=== PATIENT | male | born 1940 | race Native Hawaiian/Other Pacific Islander ===

== ENCOUNTER 2016-05-17 05:56 | Day surgery (SDC) | payer MEDICARE ==
[~2016-05-17] VITALS: Ht 172.7 cm; Wt 82.0 kg
[~2016-05-17 05:56] MED LIST: ALPR0.5T99 PO; ASPI81TA82 PO; ATOR20TA42 PO; CARV3.12 PO; CEPH500C3 PO; LORTA10 PO; SYNT112T PO
[2016-05-17] MEDS ORDERED: NS 1000P @30 MLS/HR (KVO) IV SCH ×2 (06:45→07:30)
[2016-05-17 06:54] LABS: BASOPHIL % 0.6 % (0.0-2.0); EOSINOPHIL # 0.1 TH/MM3 (0-0.4); EOSINOPHIL % 1.8 % (0.0-4.0); HEMATOCRIT 39.4 % (39.0-51.0); HEMO FLAGS DIFF FINAL; LYMPH % 29.4 % (9.0-44.0); MEAN CELL VOLUME 94.8 FL (80.0-100.0); MEAN CORPUSCULAR HEMOGLOBIN 32.1 PG (27.0-34.0); MEAN CORPUSCULAR HGB CONC 33.8 % (32.0-36.0); MONO % 10.1 % (0.0-8.0); NEUT % 58.1 % (16.0-70.0); PLATELET COUNT 135 TH/MM3 (150-450); RED BLOOD COUNT 4.15 MIL/MM3 (4.50-5.90); RED CELL DISTRIBUTION WIDTH 13.6 % (11.6-17.2); WHITE BLOOD COUNT 6.8 TH/MM3 (4.0-11.0)
[2016-05-17] MEDS ORDERED: DIAZEPAM 10 MG TAB ONE (06:54)
[2016-05-17 07:00] VITALS: BP 113/66; PULSE 58; RESP 18; TEMP 97.9; O2SAT 97
[2016-05-17 07:01] LABS: APTT (PATIENT) 31.1 SEC (24.3-30.1); PROTHROMBIN TIME - PATIENT 11.1 SEC (9.8-11.6)
[2016-05-17 07:14] LABS: BICARBONATE 28.3 MEQ/L (21.0-32.0); POTASSIUM 3.9 MEQ/L (3.5-5.1)
[2016-05-17] MEDS ORDERED: CARV3.12 PO (07:18)
[2016-05-17] MEDS ORDERED: CAPT12.52 PO (07:18)
[2016-05-17] MEDS ORDERED: NITR1SUB3 SL (07:18)
[2016-05-17] MEDS ORDERED: ISOS60TA PO (07:18)
[2016-05-17] MEDS ORDERED: ALPR0.5T3 PO (07:18)
[2016-05-17] MEDS ORDERED: DOXA4TAB3 PO (07:18)
[2016-05-17] MEDS ORDERED: ASPI81CH25 PO (07:18)
[2016-05-17] MEDS ORDERED: DIAZEPAM 5 MG TAB PO SCH (07:30)
[2016-05-17] MEDS ORDERED: HEPARIN-NS/PF INJ 500 ML ONE (07:31)
[2016-05-17] MEDS ORDERED: MIDAZOLAM HCL 2 MG/2 ML VIAL ONE (07:31)
[2016-05-17] MEDS ORDERED: SODIUM CHLOR 0.9% 1000 ML INJ 1,000 ML IV SCH (08:38)
[2016-05-17] MEDS ORDERED: ONDANSETRON HCL 4 MG/2 ML VIAL IV PRN (08:45)
[2016-05-17] MEDS ORDERED: MISC INFORMATION XX ONE (08:45)
[2016-05-17] MEDS ORDERED: SODIUM CHLORIDE 0.9% FLUSH 5 ML FLUSH IVF PRN (08:45)
[2016-05-17] MEDS ORDERED: SODIUM CHLORIDE 0.9% FLUSH 5 ML FLUSH IVF SCH (09:00)
[2016-05-17] MEDS ORDERED: IODIXANOL 320 MG/ML 100 ML VIAL (for Cath Lab) OTHER ONE (09:11)
--- NOTE | 2016-05-17 09:36 | MA ---
cc: TERE ARAGON M.D., WAGID F. M.D. DATE: 05/17/2016 PROCEDURE PERFORMED Left heart catheterization, left ventriculography, coronary angiography, bypass graft angiography. BRIEF HISTORY Iliana Roberto is a 75-year-old man who has had two previous open heart operations. At the last open heart operation the left internal mammary bypass graft was ligated. He had a Y-vein graft to the LAD and diagonal, and coming off the low of the graft was a vein graft to the right coronary artery. His inupiat circulation at that time was totally occluded. DESCRIPTION OF PROCEDURE The patient was brought to the cardiac laborer airport maintenance in a fasting state. The right groin was prepped and draped in sterile fashion. Using 1% lidocaine for local anesthesia a 6.5 Togolese sheath was inserted in the right femoral artery. Fluoroscopy was used to help localize sheath insertion because the femoral artery was calcified. There was some resistance with passing the initial pigtail catheter but subsequently no problems passing catheters. Left ventricular pressure was measured using an angled pigtail catheter followed by left ventriculography and then a pullback. Coronary angiography was completed using a left 4 Ganesh for the left coronary artery and a right 4 Ganesh for the right coronary artery. Angiography of the vein graft was performed using the right Ganesh. There was only one graft to visualize. Angiography was then obtained of the right iliac artery via the sheath. There was a very mild focal dissection but good flow and a large caliber vessel so no intervention was performed for that. The sheath was pulled manually and with no subsequent complications. The patient tolerated the procedure well. FINDINGS HEMODYNAMICS The left ventricular pressure is 90/0 with an end-diastolic pressure of 12. The aortic pressure is 99/47 with mean of 69. There is no gradient during pullback from the left ventricle to the aorta. LEFT VENTRICULOGRAPHY The left ventriculography shows severe global hypokinesis. The posterobasal segment is calcified and akinetic. Ejection fraction is only about 50%, no more than 20%. There is angiographic 2-3+ mitral regurgitation. CORONARY ANGIOGRAPHY The left main coronary artery is totally occluded proximally in a stump-like fashion. The right coronary artery is totally occluded proximally. There is a conus collateral to the involved vessel of the distal right coronary artery. BYPASS GRAFTS There is one Y-graft coming off the aorta. The graft is very large caliber with no stenoses. One limb of the Y-graft goes to the mid LAD and provides excellent antegrade flow to the LAD. It does not provide any retrograde flow in the LAD due to the fact that the mid LAD proximal to the graft is occluded. The other limb of the graft is a vein graft to the major diagonal branch. This fills all the way back to the left main, the major first septal buckle assembler branch, and probably a small ramus-type branch. There really was not any circumflex vessels visualized. There were also collaterals to the acute marginal branch of the right coronary artery from the LAD. CONCLUSIONS 1. Fairly low blood pressure. 2. Severely impaired LV function with moderate to severe mitral regurgitation. 3. Occlusion of all the inupiat circulation. 4. Widely patent Y-vein graft to the LAD and diagonal branch with collaterals to the right coronary artery, both antegrade and from the LAD. RECOMMENDATIONS Medical management. ADDENDUM There is a very small focal dissection in the right external iliac artery with good flow and no intervention performed with the idea that this will probably heal fine on its own. MD CHELSI Chavira/NIMO /8:35 AM /9:14 AM
--- NOTE | 2016-05-17 22:38 | EKG ---
Date Performed: 05/17/2016 Time Performed: 06:47:42 PTAGE: 75 years EKG: Sinus bradycardia with PVC(s) with 1st degree A-V block Possible inferior infarct - age und etermined Lateral ST-T changes may be due to myocardial ischemia Abnormal ECG PREVIOUS TRACING : 02/19/2013 04.31 DOCTOR: Orlin Kidd Interpretating Date/Time 05/17/2016 22:35:59
== END 2016-05-17 15:11 | disposition home or self-care (01) ==
LOC: HCAT 05:56 → HDIC 05:57 → HCAT 15:11
PROVIDERS: ATTEND Internal Medicine Cardiovascular Disease
DX: I25.810 Atherosclerosis of coronary artery bypass graft(s) without angina pectoris (principal); I25.5 Ischemic cardiomyopathy; I47.2 Ventricular tachycardia; I34.0 Nonrheumatic mitral (valve) insufficiency; I36.1 Nonrheumatic tricuspid (valve) insufficiency; E78.5 Hyperlipidemia, unspecified; Z95.810 Presence of automatic (implantable) cardiac defibrillator; Z79.01 Long term (current) use of anticoagulants
CPT/HCPCS: 80048; 85025; 85610; 85730; 93005; 93459; C1769; C1893; J1644; J2250; J7030; Q9967

== ENCOUNTER 2016-06-29 23:10 | Inpatient (IN) | payer MEDICARE ==
[~2016-06-29] VITALS: Ht 170.2 cm; Wt 67.2 kg
[~2016-06-29 23:10] MED LIST changes: +ALPR0.5T3 PO; -ALPR0.5T99 PO; +ASPI81CH25 PO; -ASPI81TA82 PO; -ATOR20TA42 PO; +CAPT12.52 PO; -CEPH500C3 PO; +DOXA4TAB3 PO; +ISOS60TA PO; -LORTA10 PO; +NITR1SUB3 SL; -SYNT112T PO
[2016-06-29 23:26] VITALS: BP 149/73; PULSE 75; RESP 18; TEMP 98.4; O2SAT 99
[2016-06-29] MEDS ORDERED: SODIUM CHLORIDE 0.9% FLUSH 5 ML FLUSH IVF PRN (23:45)
--- NOTE | 2016-06-29 23:59 | PD ---
HPI Chief Complaint: Chest Pain Time Seen by Provider: 23:33 Travel History International Travel<30 days: No Contact w/Intl Traveler<30days: No Traveled to known affect area: No History of Present Illness HPI 75-year-old male presents with central chest pain that is been present for the past couple of days. He states Dr. Schmitz is his quantitative associate. He states that about 5 weeks ago he had a heart catheterization done that showed damage to the left side of his heart that cannot be fixed. He states they advised him to continue his medication. He states that today he took aspirin and nitroglycerin but as he was still having the pain he elected to come in. He states now the pain is almost resolved. He denies other associated symptoms. Quality is tight. Severity is resolving. PFSH Past Medical History Heart Rhythm Problems: Yes Cardiovascular Problems: Yes (MA, CABG) High Cholesterol: Yes Chest Pain: Yes Congestive Heart Failure: Yes Endocrine: Yes Genitourinary: Yes Hypertension: Yes Respiratory: Yes Thyroid Disease: Yes (HYPOTHIROIDISM) Tetanus Vaccination: Unknown Influenza Vaccination: No Past Surgical History Cardiac Surgery: Yes (CABG *1 1984, PACEMAKER 2002) Eye Surgery: Yes (CATARACT [id number]) Other Surgery: Yes Social History Alcohol Use: No Tobacco Use: No Substance Use: No Allergies-Medications (Allergen,Severity, Reaction): Coded Allergies: No Known Allergies (Verified , 02/18/13) Reported Meds & Prescriptions Reported Meds & Active Scripts Active Reported Nitroglycerin SL (Nitroglycerin) 0.4 Mg Subl 0.4 Mg SL DIRECTED PRN ONE TABLET UNDER THE TONGUE NEEDED FOR CHEST PAIN, MAY REPEAT EVERY FIVE MINUTES FOR A TOTAL OF 3 DOSES OR CALL 911 IF NO RELIEF Doxazosin (Doxazosin Mesylate) 4 Mg Tab 4 Mg PO DAILY Carvedilol 3.125 Mg Tab 3.125 Mg PO DAILY Captopril 12.5 Mg Tab 6.25 Mg PO DIRECTED Take 1 hour before meals. Aspirin Low Strength (Aspirin) 81 Mg Chew 81 Mg PO DAILY Alprazolam 0.5 Mg Tab 0.5 Mg PO Q6H PRN Isosorbide Mononitrate ER (Isosorbide Mononitrate) 60 Mg Tab 60 Mg PO DAILY Review of Systems Except as stated in HPI: all other systems reviewed are Neg Physical Exam Narrative GENERAL: Well-nourished, well-developed patient. SKIN: Warm and dry. HEAD: Normocephalic and atraumatic. EYES: No injection or drainage. ENT: No nasal drainage noted. NECK: Supple, trachea midline. CARDIOVASCULAR: Regular rate and rhythm RESPIRATORY: Breath sounds equal bilaterally. No accessory muscle use. GASTROINTESTINAL: Abdomen soft, non-tender, nondistended. NEUROLOGICAL: Awake and alert. Motor and sensory grossly within normal limits. Normal speech. Data Data Last Documented VS Vital Signs Date Time Temp Pulse Resp B/P Pulse Ox O2 Delivery O2 Flow Rate FiO2 06/29/16 23:29 87 18 100 Nasal Cannula 2 06/29/16 23:26 98.4 149/73 Orders Electrocardiogram (06/29/16 23:33) Ckmb (Isoenzyme) Profile (06/29/16 23:33) Complete Blood Count With Diff (06/29/16 23:33) Comprehensive Metabolic Panel (06/29/16 23:33) Magnesium (Mg) (06/29/16 23:33) Prothrombin Time / Inr (Pt) (06/29/16 23:33) Act Partial Throm Time (Ptt) (06/29/16 23:33) Troponin I (06/29/16 23:33) Chest, Single Ap (06/29/16 23:33) Ecg Monitoring (06/29/16 23:33) Bilateral Bp Monitoring (06/29/16 23:33) Iv Access Insert/Monitor (06/29/16 23:33) Oximetry (06/29/16 23:33) Sodium Chloride 0.9% Flush (Ns Flush) (06/29/16 23:45) B-Type Natriuretic Peptide (06/29/16 23:47) Nitroglycerin 2% Oint (Nitroglycerin 2% (06/30/16 00:00) Consult Cardiology (06/30/16 ) Heparin Infusion LUIS.Q1H (06/30/16 01:16) Heparin Inj (Heparin Inj) (06/30/16 01:30) Heparin Inj (Heparin Inj) (06/30/16 07:30) Heparin Inj (Heparin Inj) (06/30/16 07:30) Heparin-D5w Inj (Heparin-D5w Inj) (06/30/16 01:30) Cbc No Diff, Includes Plts (07/03/16 06:00) Act Partial Throm Time (Ptt) (06/30/16 08:16) Occult Blood (Hemoccult) Stool (06/30/16 01:16) Admit Order (Ed Use Only) (06/30/16 01:27) Labs Laboratory Tests Test 06/30/16 00:08 White Blood Count 7.8 TH/MM3 Red Blood Count 4.38 MIL/MM3 Hemoglobin 14.3 GM/DL Hematocrit 41.6 % Mean Corpuscular Volume 95.1 FL Mean Corpuscular Hemoglobin 32.7 PG Mean Corpuscular Hemoglobin 34.4 % Concent Red Cell Distribution Width 13.3 % Platelet Count 129 TH/MM3 Mean Platelet Volume 10.8 FL Neutrophils (%) (Auto) 64.8 % Lymphocytes (%) (Auto) 22.0 % Monocytes (%) (Auto) 10.8 % Eosinophils (%) (Auto) 2.0 % Basophils (%) (Auto) 0.4 % Neutrophils # (Auto) 5.1 TH/MM3 Lymphocytes # (Auto) 1.7 TH/MM3 Monocytes # (Auto) 0.8 TH/MM3 Eosinophils # (Auto) 0.2 TH/MM3 Basophils # (Auto) 0.0 TH/MM3 CBC Comment DIFF FINAL Differential Comment Prothrombin Time 10.9 SEC Prothromb Time International 1.0 RATIO Ratio Activated Partial 31.3 SEC Thromboplast Time Sodium Level 142 MEQ/L Potassium Level 4.1 MEQ/L Chloride Level 104 MEQ/L Carbon Dioxide Level 25.6 MEQ/L Anion Gap 12 MEQ/L Blood Urea Nitrogen 19 MG/DL Creatinine 1.18 MG/DL Estimat Glomerular Filtration 60 ML/MIN Rate Random Glucose 97 MG/DL Calcium Level 8.7 MG/DL Magnesium Level 2.3 MG/DL Total Bilirubin 0.4 MG/DL Aspartate Amino Transf 19 U/L (AST/SGOT) Alanine Aminotransferase 23 U/L (ALT/SGPT) Alkaline Phosphatase 75 U/L Total Creatine Kinase 57 U/L Troponin I 0.33 NG/ML B-Type Natriuretic Peptide 201 PG/ML Total Protein 7.2 GM/DL Albumin 4.0 GM/DL [facility] Medical Decision Making Medical Screen Exam Complete: Yes Emergency Medical Condition: Yes Medical Record Reviewed: Yes (past history confirmed, cardiac catheter shows moderate to severe mitral regurgitation, EF of 20%, small focal right iliac artery dissection, occlusion of all [place] circulation with widely patent graft to LAD and diagonal with collaterals) Interpretation(s) EKG is sinus rhythm at 70 without STEMI criteria CBC & BMP Diagram 06/30/16 00:08 cxr scar left base Differential Diagnosis MA, gastritis, angina, musculoskeletal Narrative Course Will check workup and dose with nitroglycerin paste and reevaluate ed workup with elevated troponin, will discuss with his quantitative associate and admit Physician Communication Physician Communication dr Oliver states to place on heparin drip and admit Dr. Graf agrees to admission Diagnosis Primary Impression: Unstable angina Additional Impression: Elevated troponin Admitting Information Admitting Physician Requests: Admit Lacy Molina MD Jun 29, 2016 23:59
[2016-06-30] VITALS (18 sets, daily range): BP systolic 94–138; BP diastolic 49–82; PULSE 60–94; RESP 16–20; TEMP 98–98.2; O2SAT 96–100
[2016-06-30] MEDS ORDERED: NITROGLYCERIN 2% OINT 1 GM PACKET TOP ONE
--- NOTE | 2016-06-30 00:11 | RADRPT ---
EXAM DATE/TIME: 06/29/2016 23:43 [facility] COMPARISON: CHEST SINGLE AP, February 18, 2013, 16:40. INDICATIONS : Chest pain. MEDICAL HISTORY : Hypertension. Myocardial infarction. Congestive heart failure. SURGICAL HISTORY : CABG. Pacemaker. ENCOUNTER: Initial ACUITY: 1 day PAIN SCORE: 4/10 LOCATION: Bilateral chest FINDINGS: Pacemaker device is noted with control pack over the left chest. There is slight atelectasis or pleur al peripheral scarring in the left lung base. The right lung is clear. Cardiomediastinal contours are satisfactory. Sternotomy wires are present. CONCLUSION: Mild scarring or atelectasis in the left lung base Mayank Sorto MD on June 30, 2016 at 0:09 Board Certified Radiologist. This report was verified electronically.
[2016-06-30 00:31] LABS: AUTOMATED NEUTROPHIL # 5.1 TH/MM3 (1.8-7.7); BASOPHIL % 0.4 % (0.0-2.0); EOSINOPHIL # 0.2 TH/MM3 (0-0.4); HEMATOCRIT 41.6 % (39.0-51.0); HEMO FLAGS DIFF FINAL; LYMPHOCYTE # 1.7 TH/MM3 (1.0-4.8); MEAN CELL VOLUME 95.1 FL (80.0-100.0); MEAN CORPUSCULAR HEMOGLOBIN 32.7 PG (27.0-34.0); MEAN CORPUSCULAR HGB CONC 34.4 % (32.0-36.0); MONO % 10.8 % (0.0-8.0); NEUT % 64.8 % (16.0-70.0); PLATELET COUNT 129 TH/MM3 (150-450); RED BLOOD COUNT 4.38 MIL/MM3 (4.50-5.90); RED CELL DISTRIBUTION WIDTH 13.3 % (11.6-17.2); WHITE BLOOD COUNT 7.8 TH/MM3 (4.0-11.0)
[2016-06-30 00:40] LABS: APTT (PATIENT) 31.3 SEC (24.3-30.1); PROTHROMBIN TIME - PATIENT 10.9 SEC (9.8-11.6)
[2016-06-30 00:50] LABS: ANION GAP 12 MEQ/L (5-15); AST (GOT) 19 U/L (15-37); BICARBONATE 25.6 MEQ/L (21.0-32.0); BLOOD UREA NITROGEN 19 MG/DL (7-18); CHLORIDE 104 MEQ/L (98-107); GLOMERULAR FILTRATION RATE 60 ML/MIN (>89); MAGNESIUM 2.3 MG/DL (1.5-2.5); POTASSIUM 4.1 MEQ/L (3.5-5.1); SODIUM (NA) 142 MEQ/L (136-145)
[2016-06-30 00:55] LABS: ALKALINE PHOSPHATASE 75 U/L (45-117); ALT (GPT) 23 U/L (12-78); TOTAL BILIRUBIN ADULT 0.4 MG/DL (0.2-1.0)
[2016-06-30 00:57] LABS: CREATINE KINASE 57 U/L (39-308)
[2016-06-30] MEDS ORDERED: HEPARIN SODIUM - IV 10,000 UNITS/10 ML VIAL IV ONE (01:30)
[2016-06-30] MEDS ORDERED: NITROGLYCERIN 2% OINT 1 GM PACKET TOPICAL PRN (01:45)
[2016-06-30] MEDS ORDERED: MORPHINE SULFATE 4 MG/ML INJ IV PRN (01:45)
[2016-06-30] MEDS ORDERED: ONDANSETRON HCL 4 MG/2 ML VIAL IVP PRN (01:45)
[2016-06-30] MEDS ORDERED: ACETAMINOPHEN 325 MG TAB PO PRN (01:45)
[2016-06-30] MEDS ORDERED: BISACODYL 10 MG SUPP PR PRN (01:45)
[2016-06-30] MEDS ORDERED: SODIUM CHLORIDE 0.9% FLUSH 5 ML FLUSH FLUSH PRN (01:45)
[2016-06-30] MEDS: HEPARIN-D5W INJ 250 ML IV SCH (02:24)
[2016-06-30] MEDS ORDERED: NITROGLYCERIN-DEXTROSE INJ 250 ML IV SCH (02:45)
--- NOTE | 2016-06-30 03:57 | HHI.HP ---
HPI Service [facility] Primary Care Physician Bryan Agrawal MD Admission Diagnosis angina Diagnoses: (1) NSTEMI (non-ST elevated myocardial infarction) Diagnosis: Principal (2) CHF (congestive heart failure) Diagnosis: Principal (3) HTN (hypertension) Diagnosis: Principal Travel History International Travel<30 Days: No Contact w/Intl Traveler <30 Da: No Traveled to Known Affected Are: No History of Present Illness This is a 75-year-old male with a PMH of HTN, Hyperlipidemia, CHF (EF 15-20%, severe LV dysfunction) and CAD s/p CABG who was brought to the ER for complaints of chest pain starting earlier today. Took NTG x2 prior to arrival w / some improvement, however persistent complaints of chest pain. Follows w/ Dr. Schmitz as outpatient, recent Cardiac Cath 05/17/16 w/ patent grafts w/ recommendation for medical management. On arrival, BP 149/73, HR 75, O2 sat 100 on 2L NC, Afebrile. WBC normal. Platelets 129, previously 135 on 05/17/16. Trop 0.33, EKG w/ no acute ST changes. Episode of chest pain while in ER w/ good response to NTG. Dr. Oliver consulted by ER physician, recommended Heparin gtt and will eval in am. Review of Systems Except as stated in HPI: all other systems reviewed are Neg ROS: 14 point review of systems otherwise negative. Past Family Social History Past Medical History PMH: HTN, Hyperlipidemia, CHF (EF 15-20%, severe LV dysfunction) and CAD s/p CABG Past Surgical History PAST SURGICAL HISTORY: CABG, Pacemaker, Cataract Surgery Allergies: Coded Allergies: No Known Allergies (Verified , 02/18/13) Family History PAST FAMILY HISTORY: Reviewed. No h/o DM or CAD Social History PAST SOCIAL HISTORY: Negative for alcohol, tobacco or drugs. Physical Exam Vital Signs Vital Signs Date Time Temp Pulse Resp B/P Pulse Ox O2 Delivery O2 Flow Rate FiO2 06/30/16 03:27 77 16 123/82 100 Nasal Cannula 2 06/30/16 03:26 77 16 123/82 100 Nasal Cannula 06/30/16 03:14 94 16 138/65 100 Nasal Cannula 2 06/30/16 02:25 67 20 100 Room Air 2 06/30/16 02:25 67 20 121/60 100 Nasal Cannula 2 06/29/16 23:29 87 18 100 Nasal Cannula 2 06/29/16 23:26 98.4 75 18 149/73 99 Physical Exam PE: GENERAL: Very pleasant elderly white male in no acute distress. HEENT: PERRLA, EOMI. No scleral icterus or conjunctival pallor. No lid lag or facial droop. CARDIOVASCULAR: Regular rate and rhythm. No obvious murmurs to auscultation. No chest tenderness to palpation. RESPIRATORY: No obvious rhonchi or wheezing. Clear to auscultation. Breath sounds equal bilaterally. GASTROINTESTINAL: Abdomen soft, non-tender, nondistended. BS normal. MUSCULOSKELETAL: Extremities without clubbing, cyanosis, or edema. No obvious deformities. NEUROLOGICAL: Awake, alert and oriented x4. No focal neurologic deficits. Moving both upper and lower extremities spontaneously. Laboratory Laboratory Tests Test 06/30/16 00:08 White Blood Count 7.8 Red Blood Count 4.38 Hemoglobin 14.3 Hematocrit 41.6 Mean Corpuscular Volume 95.1 Mean Corpuscular Hemoglobin 32.7 Mean Corpuscular Hemoglobin 34.4 Concent Red Cell Distribution Width 13.3 Platelet Count 129 Mean Platelet Volume 10.8 Neutrophils (%) (Auto) 64.8 Lymphocytes (%) (Auto) 22.0 Monocytes (%) (Auto) 10.8 Eosinophils (%) (Auto) 2.0 Basophils (%) (Auto) 0.4 Neutrophils # (Auto) 5.1 Lymphocytes # (Auto) 1.7 Monocytes # (Auto) 0.8 Eosinophils # (Auto) 0.2 Basophils # (Auto) 0.0 CBC Comment DIFF FINAL Differential Comment Prothrombin Time 10.9 Prothromb Time International 1.0 Ratio Activated Partial 31.3 Thromboplast Time Sodium Level 142 Potassium Level 4.1 Chloride Level 104 Carbon Dioxide Level 25.6 Anion Gap 12 Blood Urea Nitrogen 19 Creatinine 1.18 Estimat Glomerular Filtration 60 Rate Random Glucose 97 Calcium Level 8.7 Magnesium Level 2.3 Total Bilirubin 0.4 Aspartate Amino Transf 19 (AST/SGOT) Alanine Aminotransferase 23 (ALT/SGPT) Alkaline Phosphatase 75 Total Creatine Kinase 57 Troponin I 0.33 B-Type Natriuretic Peptide 201 Total Protein 7.2 Albumin 4.0 Result Diagram: 06/30/16706/30/167 Assessment and Plan Problem List: (1) NSTEMI (non-ST elevated myocardial infarction) ICD Code: I21.4 Status: Acute (2) CHF (congestive heart failure) ICD Code: I50.9 Status: Acute (3) HTN (hypertension) ICD Code: I10 Status: Acute Assessment and Plan A/P: 1. NSTEMI: h/o CAD s/p CABG, recent Cardiac Cath 05/17/[address] Schmitz w/ EF 15%, patent grafts w/ recommendation for medical management. Trop 0.33, EKG w/ no acute ST changes. Chest pain w/ significant improvement after NTG. Dr. Oliver consulted by ER physician, recommended Heparin gtt. Persistent c/o chest pain while in ER, start Nitro gtt, currently improved. NPO for possible cardiac intervention. Telemetry, check serial cardiac enzymes. 2. CHF: Chronic. Systolic. Cardiac Cath 05/17/16 w/ EF 15-20%, severe LV dysfunction. 3. HTN: Controlled. BP 120-130's systolic. Resume home medications, monitor BP. 4. DVT Prophylaxis: Heparin gtt 5. Social work for d/c planning as needed. 6. Case discussed w/ ER physician at length. Physician Certification 2 Midnight Certification Type: Admission for Inpatient Services Order for Inpatient Services The services are ordered in accordance with Medicare regulations or non- Medicare payer requirements, as applicable. In the case of services not specified as inpatient-only, they are appropriately provided as inpatient services in accordance with the 2-midnight benchmark. Estimated LOS (days): 2 days is the estimated time the patient will need to remain in the hospital, assuming treatment plan goals are met and no additional complications. Post-Hospital Plan: Not yet determined Jami Graf MD Jun 30, 2016 03:57
[2016-06-30 04:21] LABS: CREATINE KINASE 102 U/L (39-308)
[2016-06-30 04:35] LABS: CKMB 5.8 NG/ML (0.5-3.6)
[2016-06-30] MEDS: SODIUM CHLORIDE 0.9% FLUSH 5 ML FLUSH FLUSH SCH ×2 (07:30→20:04)
[2016-06-30] MEDS ORDERED: HEPARIN SODIUM - IV 10,000 UNITS/10 ML VIAL IV PRN ×2 (07:30)
[2016-06-30] MEDS ORDERED: CARVEDILOL 3.125 MG TAB PO SCH (09:00)
[2016-06-30] MEDS: ASPIRIN 81 MG CHEW TAB PO SCH (09:00)
[2016-06-30] MEDS: ALPRAZolam 0.5 MG TAB PO PRN ×2 (10:01→20:04)
[2016-06-30 10:31] LABS: APTT (PATIENT) 90.6 SEC (24.3-30.1)
[2016-06-30] MEDS ORDERED: FUROSEMIDE 20 MG TAB PO ONE (13:00)
[2016-06-30 13:07] LABS: APTT (PATIENT) 76.5 SEC (24.3-30.1)
--- NOTE | 2016-06-30 14:30 | MB ---
cc: SAMUEL QUEEN M.D. DATE OF CONSULTATION: 06/30/2016. REASON FOR CONSULTATION / CHIEF COMPLAINT: Chest pain. HISTORY OF PRESENT ILLNESS: The patient is an exceptionally pleasant 75-year-old white male who is been followed for many years by my partner, Dr. Donta Schmitz. Because of increasing angina, he underwent cardiac catheterization 05/17/2016. He is known to be status post two prior bypass procedures. He is known to have an advanced ischemic cardiomyopathy with a [employer] ICD in place. His cardiac catheterization on 05/17/2016 showed total occlusion of all little traverse circulation with a 100% left main coronary lesion and a 100% proximal right lesion. His only bypass graft was a Y graft to the LAD and first diagonal and it supplied only the distal two-thirds of the LAD as there was a proximal 100% LAD occlusion just beyond the vein graft insertion. The right coronary artery and circumflex coronary artery were collateralized. Ejection fraction was 20%. The patient had 2 to 3+ mitral insufficiency. Cardiac catheterization was complicated by a small area of right femoral artery dissection which has never been a clinical issue and he has had no complaints consistent with any related complication. His last office visit was on 06/04/2016 and at that time he was felt to be only a candidate for medical management. He has a history of moderate bilateral carotid disease and a moderate renal artery atherosclerosis. There is a history of hyperlipidemia. He has been very weak and washed out but otherwise free of cardiovascular complaints. He denies any shortness of breath or congestive failure type symptoms. He has just had primarily exercise intolerance. Because of headaches, he has had to reduce his isosorbide mononitrate to 1/2 tablet daily. He has otherwise been free of cardiovascular complaints, but extremely sedentary. He was well until yesterday evening. He was sitting watching TV when he had the onset of his typical angina pectoris. This was discomfort in the left arm radiating to the mid sternum and throat. It was relieved by sublingual nitroglycerin but then would recur every 10 minutes. After the third episode, his convinced him to come to the emergency room. In the emergency room, he had relatively severe chest discomfort and he has subsequently been found to have a non ST-segment elevation NV. Since being placed on heparin and intravenous nitrates his discomfort has resolved. The nitrates, however, had to be discontinued because of his blood pressure in the 95 systolic range. At the time I see him, he is comfortable supine in bed and completely asymptomatic. PHYSICAL EXAMINATION: GENERAL: On general inspection, he is an alert very pleasant gentleman lying in bed in no distress. VITAL SIGNS: His vital signs reveal a blood pressure of 94/60, pulse of 70, respirations of 16. Patient is afebrile. Saturation is 97% on 2 liters of oxygen. HEAD, EYES, EARS, NOSE, THROAT AND NECK: Unremarkable for the patient's age. LUNGS: Clear. CARDIOVASCULAR: Regular rate and rhythm. 2/6 systolic murmur consistent with his history of mitral insufficiency. S1-S2 are unremarkable. No gallops appreciated. ABDOMEN: Soft without masses, tenderness, organomegaly. Bowel sounds within normal limits. GENITALIA/RECTAL: Deferred. EXTREMITIES: No cyanosis, clubbing or edema. NEUROLOGIC: Grossly intact without focal findings. LABORATORY DATA: CBC is normal. Clotting studies were initially normal but on the heparin drip the aPTT is 90.6. SMA-12 is normal. The patient has had a troponin rise from 0.331 on his initial study to 1.85, CK-MB is also minimally elevated. EKG initially shows a first-degree AV block with lateral T-wave changes unchanged from April of 2016 and a subsequent EKG shows bigeminy with worsening lateral ST-segment change. Chest x-ray is unremarkable except for showing the ICD. ASSESSMENT AND PLAN: This is a very unfortunate situation. Pretty clearly with a 15-20% ejection fraction and multiple prior open heart procedures, he is really not much of a candidate for repeat surgical intervention. There is unfortunately no little traverse vascular access or any access for that matter to provide percutaneous revascularization. This leaves consideration of medical therapy and possibly ECP. His discomfort is nitrate-responsive so it is likely related to wall tension even though he does not have significant symptoms of congestive failure. I am going to increase his topical nitrates and increase his beta lawrence slightly. I am going to add some very minimal diuresis in an effort to further reduce filling pressure and wall tension. Unfortunately we just do not have anything to offer this gentleman, but again if he stabilizes, ECP can be considered. His regular cell stripper final, Dr. Schmitz, will be available in the morning. He is, at present, stable on his medical regimen. Subsequent therapy to be determined. MD MALCOLM Bautista/ANGELITA /12:48 PM /2:17 PM
--- NOTE | 2016-06-30 14:40 | EKG ---
Date Performed: 06/29/2016 Time Performed: 23:30:47 PTAGE: 75 years EKG: Sinus rhythm WITH FIRST DEGREE AV BLOCK ST DEVIATION AND MODERATE T-WAVE ABNORMALITY, CONSIDER LATERAL ISCHEMIA A BNORMAL ECG Compared to prior tracing no significant change PREVIOUS TRACING : 05/17/2016 06.47 DOCTOR: Noe Fields Interpretating Date/Time 06/30/2016 14:38:35
--- NOTE | 2016-06-30 14:41 | EKG ---
Date Performed: 06/30/2016 Time Performed: 02:36:28 PTAGE: 75 years EKG: Sinus rhythm WITH FIRST DEGREE AV BLOCK WITH FREQUENT VENTRICULAR PREMATURE COMPLEXES IN A BIGEMINAL PATTERN ST D EVIATION AND MODERATE T-WAVE ABNORMALITY, CONSIDER LATERAL ISCHEMIA ST DEVIATION AND MODERATE T-WAVE ABNORMALITY, CONSIDER INFERIOR ISCHEMIA ABNORMAL ECG Compared to prior tracing no significant change PREVIOUS TRACING : 06/29/2016 23.30 DOCTOR: Noe Fields Interpretating Date/Time 06/30/2016 14:38:45
--- NOTE | 2016-06-30 15:09 | HHI.PR ---
Addendum To [facility] Progress Not Reason for addendum: Additonal documentation (The pt was resting comfortably, chest pain free. He says he never has shortness of breath. He was seen by cardiology. No acute intervention planned. Continue heparin gtt, nitro and Lasix along with cardiac regimen. Follow up with cardiology in AM. Continue to monitor trops.) Roc Gilman DO Jun 30, 2016 15:09
[2016-06-30] MEDS: NITROGLYCERIN 2% OINT 1 GM PACKET TOPICAL SCH (18:00)
[2016-06-30 20:04] LABS: APTT (PATIENT) 44.6 SEC (24.3-30.1)
[2016-06-30] MEDS: CARVEDILOL 3.125 MG TAB PO SCH (20:04)
[2016-07-01] VITALS (28 sets, daily range): BP systolic 106–123; BP diastolic 52–71; PULSE 51–92; RESP 16–20; TEMP 97.3–98.4; O2SAT 96–100
[2016-07-01] MEDS: ACETAMINOPHEN/HYDROcodone 325 MG/5 MG TAB PO PRN ×3 (00:16→21:01)
[2016-07-01] MEDS: NITROGLYCERIN 2% OINT 1 GM PACKET TOPICAL SCH ×5 (00:16→23:15)
[2016-07-01] MEDS: ALPRAZolam 0.5 MG TAB PO PRN ×2 (04:04→23:15)
[2016-07-01 04:28] LABS: AUTOMATED NEUTROPHIL # 2.3 TH/MM3 (1.8-7.7); BASOPHIL % 0.6 % (0.0-2.0); EOSINOPHIL # 0.2 TH/MM3 (0-0.4); EOSINOPHIL % 3.2 % (0.0-4.0); HEMATOCRIT 37.7 % (39.0-51.0); HEMO FLAGS DIFF FINAL; LYMPH % 45.4 % (9.0-44.0); LYMPHOCYTE # 2.6 TH/MM3 (1.0-4.8); MEAN CELL VOLUME 94.7 FL (80.0-100.0); MEAN CORPUSCULAR HEMOGLOBIN 32.5 PG (27.0-34.0); MEAN CORPUSCULAR HGB CONC 34.3 % (32.0-36.0); MONO % 11.1 % (0.0-8.0); NEUT % 39.7 % (16.0-70.0); PLATELET COUNT 104 TH/MM3 (150-450); RED BLOOD COUNT 3.98 MIL/MM3 (4.50-5.90); RED CELL DISTRIBUTION WIDTH 13.4 % (11.6-17.2); WHITE BLOOD COUNT 5.7 TH/MM3 (4.0-11.0)
[2016-07-01 04:34] LABS: APTT (PATIENT) 46.9 SEC (24.3-30.1)
[2016-07-01 05:03] LABS: ALKALINE PHOSPHATASE 64 U/L (45-117); ALT (GPT) 22 U/L (12-78); ANION GAP 8 MEQ/L (5-15); AST (GOT) 21 U/L (15-37); BICARBONATE 27.3 MEQ/L (21.0-32.0); BLOOD UREA NITROGEN 18 MG/DL (7-18); CHLORIDE 107 MEQ/L (98-107); GLOMERULAR FILTRATION RATE 59 ML/MIN (>89); POTASSIUM 4.1 MEQ/L (3.5-5.1); SODIUM (NA) 142 MEQ/L (136-145); TOTAL BILIRUBIN ADULT 0.6 MG/DL (0.2-1.0)
[2016-07-01] MEDS: FUROSEMIDE 20 MG TAB PO SCH (08:35)
[2016-07-01] MEDS: SODIUM CHLORIDE 0.9% FLUSH 5 ML FLUSH FLUSH SCH ×2 (08:35→21:02)
[2016-07-01] MEDS: CARVEDILOL 3.125 MG TAB PO SCH (08:35)
[2016-07-01] MEDS: ASPIRIN 81 MG CHEW TAB PO SCH (08:35)
--- NOTE | 2016-07-01 09:13 | PD.CARD.PN ---
Subjective Subjective Remarks no further chest pain since yesterday Objective Medications Current Medications Medications (Trade) Dose Ordered Sig/Raphael Route Start Time Stop Time Status Last Admin (Heparin Inj) 5,000 units UNSCH PRN IV 06/30/16 07:30 Heparin Sodium (Porcine) 2500 units 2,500 units UNSCH PRN IV 06/30/16 07:30 (Heparin-D5W Inj) 250 ml @ 0 mls/hr TITRATE IV 06/30/16 01:30 06/30/16 02:24 (NS Flush) 2 ml UNSCH PRN FLUSH 06/30/16 01:45 (NS Flush) 2 ml BID FLUSH 06/30/16 09:00 07/01/16 08:35 (Zofran Inj) 4 mg Q6H PRN IVP 06/30/16 01:45 (Dulcolax Supp) 10 mg DAILY PRN [place] 06/30/16 01:45 (Tylenol) 650 mg Q6H PRN PO 06/30/16 01:45 ([place] 5-325 Mg) 1 tab Q4H PRN PO 06/30/16 01:45 07/01/16 04:06 Morphine Sulfate 2 mg 2 mg Q3H PRN IV 06/30/16 01:45 06/30/16 02:38 (Nitroglycerin-Dextrose Inj) 250 ml @ 0 mls/hr TITRATE IV 06/30/16 02:45 06/30/16 03:13 (Xanax) 0.5 mg Q6H PRN PO 06/30/16 08:30 07/01/16 04:04 (Aspirin Chew) 81 mg DAILY PO 06/30/16 09:00 07/01/16 08:35 (Coreg) 3.125 mg BID PO 06/30/16 21:00 07/01/16 08:35 (Nitroglycerin 2% Oint) 0.5 inch Q6HR TOPICAL 06/30/16 18:00 07/01/16 04:07 (Lasix) 20 mg DAILY PO 07/01/16 09:00 07/01/16 08:35 (Flu (Quadrivalent) Vaccine Inj) 0.5 ml ONCE ONCE IM 07/01/16 10:00 07/01/16 10:01 Vital Signs / I&O Vital Signs Date Time Temp Pulse Resp B/P Pulse Ox O2 Delivery O2 Flow Rate FiO2 07/01/16 08:04 65 07/01/16 07:46 100 Room Air 07/01/16 07:46 97.3 62 18 123/62 100 07/01/16 07:03 57 07/01/16 06:00 55 07/01/16 05:00 58 07/01/16 04:00 Room Air 07/01/16 04:00 98.4 65 18 106/62 99 07/01/16 04:00 65 07/01/16 03:00 52 07/01/16 02:00 51 07/01/16 01:00 61 07/01/16 00:00 58 07/01/16 00:00 Room Air 07/01/16 00:00 98.2 58 18 113/52 97 06/30/16 23:00 61 06/30/16 22:00 60 06/30/16 21:00 63 06/30/16 20:00 61 06/30/16 20:00 98.0 61 20 108/54 97 06/30/16 15:00 98.2 69 18 99/52 97 06/30/16 12:00 98.0 60 18 94/49 98 06/30/16 09:30 98.1 90 18 126/76 96 I/O 06/30/16 06/30/16 06/30/16 07/01/16 07/01/16 07/01/16 07:00 15:00 23:00 07:00 15:00 23:00 Intake Total 310 ml Output Total 800 ml Balance -490 ml Intake Oral 240 ml IV Total 70 ml Output Urine Total 800 ml # Bowel Movements 0 Physical Exam GENERAL: Well developed, well nourished. No acute distress. HEENT: Jugular venous pressure is normal. CHEST: Lungs clear to auscultation bilaterally. Unlabored respiratory effort. CARDIAC: Regular rate and rhythm. ABDOMEN: Soft, nontender, no hepatosplenomegaly. Bowel sounds present. EXTREMITIES: No clubbing, cyanosis, or edema. Laboratory Laboratory Tests Test 06/30/16 06/30/16 06/30/16 07/01/16 09:30 12:20 19:33 03:59 Activated Partial 90.6 SEC 76.5 SEC 44.6 SEC 46.9 SEC Thromboplast Time White Blood Count 5.7 TH/MM3 Red Blood Count 3.98 MIL/MM3 Hemoglobin 12.9 GM/DL Hematocrit 37.7 % Mean Corpuscular Volume 94.7 FL Mean Corpuscular Hemoglobin 32.5 PG Mean Corpuscular Hemoglobin 34.3 % Concent Red Cell Distribution Width 13.4 % Platelet Count 104 TH/MM3 Mean Platelet Volume 9.9 FL Neutrophils (%) (Auto) 39.7 % Lymphocytes (%) (Auto) 45.4 % Monocytes (%) (Auto) 11.1 % Eosinophils (%) (Auto) 3.2 % Basophils (%) (Auto) 0.6 % Neutrophils # (Auto) 2.3 TH/MM3 Lymphocytes # (Auto) 2.6 TH/MM3 Monocytes # (Auto) 0.6 TH/MM3 Eosinophils # (Auto) 0.2 TH/MM3 Basophils # (Auto) 0.0 TH/MM3 CBC Comment DIFF FINAL Differential Comment Sodium Level 142 MEQ/L Potassium Level 4.1 MEQ/L Chloride Level 107 MEQ/L Carbon Dioxide Level 27.3 MEQ/L Anion Gap 8 MEQ/L Blood Urea Nitrogen 18 MG/DL Creatinine 1.19 MG/DL Estimat Glomerular Filtration 59 ML/MIN Rate Random Glucose 80 MG/DL Calcium Level 8.1 MG/DL Total Bilirubin 0.6 MG/DL Aspartate Amino Transf 21 U/L (AST/SGOT) Alanine Aminotransferase 22 U/L (ALT/SGPT) Alkaline Phosphatase 64 U/L Troponin I 1.31 NG/ML B-Type Natriuretic Peptide 450 PG/ML Total Protein 5.9 GM/DL Albumin 3.1 GM/DL Assessment and Plan Problem List: (1) Ischemic cardiomyopathy Assessment and Plan: restart Entresto (2) NSTEMI (non-ST elevated myocardial infarction) Assessment and Plan: add Brilinta. Stop heparin later today. Change carvedilol to metoprolol. Add Ranexa. Plan EECP after discharge. 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 Meds optimized. Possible discharge tomorrow. Prognosis guarded. Discussed Condition With patient Donta Schmitz MD Jul 01, 2016 09:13
[2016-07-01] MEDS ORDERED: TICAGRELOR 90 MG TAB PO ONE (09:15)
[2016-07-01] MEDS ORDERED: INFLUENZA VIRUS VACCINE (QUADRIVALENT) 0.5 ML SYR IM ONE (10:00)
[2016-07-01] MEDS: HEPARIN-D5W INJ 250 ML IV SCH (10:18)
[2016-07-01] MEDS: SACUBITRIL/VALSARTAN 24 MG-26 MG TAB PO SCH ×2 (13:42→21:00)
[2016-07-01] MEDS: RANOLAZINE 500 MG EXTENDED RELEASE TAB PO SCH ×2 (13:42→21:01)
--- NOTE | 2016-07-01 14:03 | HHI.PR ---
Subjective Remarks The patient endorses some shortness of breath earlier as well as lightheadedness. He was feeling better now. 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 He is not having any chest pain. Discussed with nursing. Objective Vitals Vital Signs Date Time Temp Pulse Resp B/P Pulse Ox O2 Delivery O2 Flow Rate FiO2 07/01/16 13:16 92 07/01/16 12:01 66 07/01/16 11:47 61 07/01/16 11:47 97.8 60 18 108/71 98 07/01/16 10:43 64 07/01/16 09:48 59 07/01/16 08:04 65 07/01/16 07:46 100 Room Air 07/01/16 07:46 97.3 62 18 123/62 100 07/01/16 07:03 57 07/01/16 06:00 55 07/01/16 05:00 58 07/01/16 04:00 Room Air 07/01/16 04:00 98.4 65 18 106/62 99 07/01/16 04:00 65 07/01/16 03:00 52 07/01/16 02:00 51 07/01/16 01:00 61 07/01/16 00:00 58 07/01/16 00:00 Room Air 07/01/16 00:00 98.2 58 18 113/52 97 06/30/16 23:00 61 06/30/16 22:00 60 06/30/16 21:00 63 06/30/16 20:00 61 06/30/16 20:00 98.0 61 20 108/54 97 06/30/16 15:00 98.2 69 18 99/52 97 I/O 06/30/16 06/30/16 06/30/16 07/01/16 07/01/16 07/01/16 07:00 15:00 23:00 07:00 15:00 23:00 Intake Total 310 ml Output Total 800 ml Balance -490 ml Intake Oral 240 ml IV Total 70 ml Output Urine Total 800 ml # Bowel Movements 0 Result Diagram: 07/01/16 0359 07/01/16 0359 Imaging Last Impressions Chest X-Ray 06/29/16 3159 Signed Impressions: Service Date/Time: Wednesday, June 29, 2016 23:43 - CONCLUSION: Mild scarring or atelectasis in the left lung base Mayank Sorto MD Objective Remarks GENERAL: Elderly male in no acute distress. HEENT: PERRLA, EOMI. No scleral icterus or conjunctival pallor. No lid lag or facial droop. CARDIOVASCULAR: Regular rate and rhythm. No obvious murmurs to auscultation. No chest tenderness to palpation. RESPIRATORY: Mild wheezing. Clear to auscultation. Breath sounds equal bilaterally. GASTROINTESTINAL: Abdomen soft, non-tender, nondistended. BS normal. MUSCULOSKELETAL: Extremities without clubbing, cyanosis, or edema. No obvious deformities. NEUROLOGICAL: Awake, alert and oriented x4. No focal neurologic deficits. Moving both upper and lower extremities spontaneously. PSYCH: Slightly anxious. Medications and IVs Current Medications Medications (Trade) Dose Ordered Sig/Raphael Route Start Time Stop Time Status Last Admin (Heparin Inj) 5,000 units UNSCH PRN IV 06/30/16 07:30 07/01/16 15:00 Heparin Sodium (Porcine) 2500 units 2,500 units UNSCH PRN IV 06/30/16 07:30 07/01/16 15:00 (Heparin-D5W Inj) 250 ml @ 0 mls/hr TITRATE IV 06/30/16 01:30 07/01/16 15:00 07/01/16 10:18 (NS Flush) 2 ml UNSCH PRN FLUSH 06/30/16 01:45 (NS Flush) 2 ml BID FLUSH 06/30/16 09:00 07/01/16 08:35 (Zofran Inj) 4 mg Q6H PRN IVP 06/30/16 01:45 (Dulcolax Supp) 10 mg DAILY PRN [place] 06/30/16 01:45 (Tylenol) 650 mg Q6H PRN PO 06/30/16 01:45 ([place] 5-325 Mg) 1 tab Q4H PRN PO 06/30/16 01:45 07/01/16 04:06 Morphine Sulfate 2 mg 2 mg Q3H PRN IV 06/30/16 01:45 06/30/16 02:38 (Nitroglycerin-Dextrose Inj) 250 ml @ 0 mls/hr TITRATE IV 06/30/16 02:45 06/30/16 03:13 (Xanax) 0.5 mg Q6H PRN PO 06/30/16 08:30 07/01/16 04:04 (Aspirin Chew) 81 mg DAILY PO 06/30/16 09:00 07/01/16 08:35 (Nitroglycerin 2% Oint) 0.5 inch Q6HR TOPICAL 06/30/16 18:00 07/01/16 13:43 (Lasix) 20 mg DAILY PO 07/01/16 09:00 07/01/16 08:35 (Entresto 24-26 Mg) 1 tab BID PO 07/01/16 10:00 07/01/16 13:42 (Ranexa) 500 mg Q12HR PO 07/01/16 10:00 07/01/16 13:42 (Brilinta) 90 mg BID PO 07/01/16 21:00 (Lopressor) 25 mg Q12HR PO 07/01/16 21:00 A/P Problem List: (1) NSTEMI (non-ST elevated myocardial infarction) ICD Code: I21.4 Status: Acute (2) CHF (congestive heart failure) ICD Code: I50.9 Status: Acute (3) HTN (hypertension) ICD Code: I10 Status: Acute Assessment and Plan NSTEMI H/o CAD s/p CABG, recent Cardiac Cath 05/17/[address] Schmitz w/ EF 15%, patent grafts w/ recommendation for medical management. Trop 1.85, EKG w/ no acute ST changes. Chest pain w/ significant improvement after NTG. Heparin gtt was started. - continue cardiac regimen. Brilinta added, carvedilol was changed to metoprolol and Ranexa was added. Cardiology planning on CP after discharge. - Telemetry. CHF Chronic. Systolic. Cardiac Cath 05/17/16 w/ EF 15-20%, severe LV dysfunction. The pt endorsed shortness of breath 07/01. - continue Lasix. - restart Entresto. - repeat CXR 07/01. HTN Controlled. - Resume home medications. DVT Prophylaxis: Heparin gtt Discharge Planning D/c when cleared by cardiology. Possibly in the AM. Roc Gilman DO Jul 01, 2016 14:03
--- NOTE | 2016-07-01 15:02 | RADRPT ---
EXAM DATE/TIME: 07/01/2016 14:15 [place] COMPARISON: CHEST SINGLE AP, June 29, 2016, 23:43. INDICATIONS : Short of breath MEDICAL HISTORY : Myocardial infarction. Congestive heart failure. Hypertension. SURGICAL HISTORY : CABG. pacemaker/difibrillator ENCOUNTER: Subsequent ACUITY: 3 days PAIN SCORE: 0/10 LOCATION: Bilateral chest FINDINGS: The cardiac silhouette is normal in transverse diameter. Median sternotomy wires are present. A defib rillator device is in place via a left sided approach. The lungs are free of acute parenchymal opacit y. No effusions are identified. There is parenchymal scarring on the left. CONCLUSION: 1. Cardiomegaly. No acute pulmonary disease. Cuco Ruiz MD on July 01, 2016 at 14:58 Board Certified Radiologist. This report was verified electronically.
[2016-07-01] MEDS: METOPROLOL TARTRATE 25 MG TAB PO SCH (21:00)
[2016-07-01] MEDS: TICAGRELOR 90 MG TAB PO SCH (21:01)
[2016-07-02] VITALS (11 sets, daily range): BP systolic 89–113; BP diastolic 54–60; PULSE 49–81; RESP 17–20; TEMP 97.4–97.9; O2SAT 97–98
[2016-07-02] MEDS: NITROGLYCERIN 2% OINT 1 GM PACKET TOPICAL SCH (06:05)
[2016-07-02] MEDS: METOPROLOL TARTRATE 25 MG TAB PO SCH (09:00)
--- NOTE | 2016-07-02 09:09 | PD.CARD.PN ---
Subjective Subjective Remarks No angina Objective Medications Current Medications Medications (Trade) Dose Ordered Sig/Raphael Route Start Time Stop Time Status Last Admin (NS Flush) 2 ml UNSCH PRN FLUSH 06/30/16 01:45 (NS Flush) 2 ml BID FLUSH 06/30/16 09:00 07/01/16 21:02 (Zofran Inj) 4 mg Q6H PRN IVP 06/30/16 01:45 (Dulcolax Supp) 10 mg DAILY PRN [place] 06/30/16 01:45 (Tylenol) 650 mg Q6H PRN PO 06/30/16 01:45 ([place] 5-325 Mg) 1 tab Q4H PRN PO 06/30/16 01:45 07/01/16 21:01 Morphine Sulfate 2 mg 2 mg Q3H PRN IV 06/30/16 01:45 06/30/16 02:38 (Nitroglycerin-Dextrose Inj) 250 ml @ 0 mls/hr TITRATE IV 06/30/16 02:45 06/30/16 03:13 (Xanax) 0.5 mg Q6H PRN PO 06/30/16 08:30 07/01/16 23:15 (Aspirin Chew) 81 mg DAILY PO 06/30/16 09:00 07/01/16 08:35 (Nitroglycerin 2% Oint) 0.5 inch Q6HR TOPICAL 06/30/16 18:00 07/02/16 06:05 (Lasix) 20 mg DAILY PO 07/01/16 09:00 07/01/16 08:35 (Entresto 24-26 Mg) 1 tab BID PO 07/01/16 10:00 07/01/16 21:00 (Ranexa) 500 mg Q12HR PO 07/01/16 10:00 07/01/16 21:01 (Brilinta) 90 mg BID PO 07/01/16 21:00 07/01/16 21:01 (Lopressor) 25 mg Q12HR PO 07/01/16 21:00 07/01/16 21:00 Vital Signs / I&O Vital Signs Date Time Temp Pulse Resp B/P Pulse Ox O2 Delivery O2 Flow Rate FiO2 07/02/16 09:05 81 07/02/16 08:00 97.4 61 18 113/56 98 07/02/16 08:00 60 07/02/16 06:19 52 07/02/16 05:16 53 07/02/16 04:14 62 07/02/16 03:45 97.9 62 17 89/54 97 07/02/16 03:00 57 07/02/16 02:27 56 07/02/16 01:23 52 07/02/16 00:00 54 07/01/16 23:15 98.4 61 17 110/53 98 07/01/16 23:00 60 07/01/16 22:00 72 07/01/16 21:00 76 07/01/16 20:00 74 07/01/16 19:15 96 Nasal Cannula 1.00 07/01/16 19:15 97.6 88 20 108/65 96 07/01/16 19:00 85 07/01/16 18:03 89 07/01/16 17:18 76 07/01/16 16:16 78 07/01/16 15:27 97.6 80 16 119/67 97 07/01/16 15:09 78 07/01/16 14:20 81 07/01/16 13:16 92 07/01/16 12:01 66 07/01/16 11:47 61 07/01/16 11:47 97.8 60 18 108/71 98 07/01/16 10:43 64 07/01/16 09:48 59 I/O 07/01/16 07/01/16 07/01/16 07/02/16 07/02/16 07/02/16 07:00 15:00 23:00 07:00 15:00 23:00 Intake Total 310 ml 996 ml 720 ml Output Total 800 ml 1550 ml 825 ml Balance -490 ml -554 ml -105 ml Intake Oral 240 ml 940 ml 720 ml IV Total 70 ml 56 ml Output Urine Total 800 ml 1550 ml 825 ml # Bowel Movements 0 Physical Exam GENERAL: Well developed, well nourished. No acute distress. HEENT: Jugular venous pressure is normal. CHEST: Lungs clear to auscultation bilaterally. Unlabored respiratory effort. CARDIAC: Regular rate and rhythm. ABDOMEN: Soft, nontender, no hepatosplenomegaly. Bowel sounds present. EXTREMITIES: No clubbing, cyanosis, or edema. 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 OV with me 2 weeks Donta Schmitz MD Jul 02, 2016 09:09
[2016-07-02] MEDS: RANOLAZINE 500 MG EXTENDED RELEASE TAB PO SCH (09:13)
[2016-07-02] MEDS: SACUBITRIL/VALSARTAN 24 MG-26 MG TAB PO SCH (09:13)
[2016-07-02] MEDS: FUROSEMIDE 20 MG TAB PO SCH (09:13)
[2016-07-02] MEDS: TICAGRELOR 90 MG TAB PO SCH (09:13)
[2016-07-02] MEDS: ASPIRIN 81 MG CHEW TAB PO SCH (09:13)
[2016-07-02] MEDS: SODIUM CHLORIDE 0.9% FLUSH 5 ML FLUSH FLUSH SCH (09:14)
[2016-07-02] MEDS: ACETAMINOPHEN/HYDROcodone 325 MG/5 MG TAB PO PRN (09:15)
[2016-07-02] MEDS ORDERED: METO25TA3 PO (09:19)
[2016-07-02] MEDS ORDERED: BRIL90TA PO (09:19)
[2016-07-02] MEDS ORDERED: SACU1TAB PO (09:19)
[2016-07-02] MEDS ORDERED: RANO500 PO (09:19)
[2016-07-02] MEDS ORDERED: FURO20TA PO (09:19)
[2016-07-02] MEDS ORDERED: ISOS30TA3 PO (09:19)
--- NOTE | 2016-07-02 09:20 | HHI.DS ---
Discharge Summary Admission Date Jun 30, 2016 at 1:28 am Discharge Date: Jul 02, 2016 Admitting Diagnosis angina (1) NSTEMI (non-ST elevated myocardial infarction) ICD Code: I21.4 Diagnosis: Principal (2) CHF (congestive heart failure) ICD Code: I50.9 (3) HTN (hypertension) ICD Code: I10 Procedures None. Brief History - From Admission This is a 75-year-old male with a PMH of HTN, Hyperlipidemia, CHF (EF 15-20%, severe LV dysfunction) and CAD s/p CABG who was brought to the ER for complaints of chest pain starting earlier today. Took NTG x2 prior to arrival w / some improvement, however persistent complaints of chest pain. Follows w/ Dr. Schmitz as outpatient, recent Cardiac Cath 05/17/16 w/ patent grafts w/ recommendation for medical management. On arrival, BP 149/73, HR 75, O2 sat 100 on 2L NC, Afebrile. WBC normal. Platelets 129, previously 135 on 05/17/16. Trop 0.33, EKG w/ no acute ST changes. Episode of chest pain while in ER w/ good response to NTG. Dr. Oliver consulted by ER physician, recommended Heparin gtt and will eval in am. CBC/BMP: 07/01/16 0359 07/01/16 0359 Significant Findings Laboratory Tests Test 06/30/16 06/30/16 06/30/16 06/30/16 00:08 02:43 05:40 09:30 Red Blood Count 4.38 MIL/MM3 (4.50-5.90) Platelet Count 129 TH/MM3 (150-450) Monocytes (%) (Auto) 10.8 % (0.0-8.0) Activated Partial 31.3 SEC 90.6 SEC Thromboplast Time (24.3-30.1) (24.3-30.1) Blood Urea Nitrogen 19 MG/DL (7-18) Estimat Glomerular Filtration 60 ML/MIN (>89) Rate Troponin I 0.33 NG/ML 0.77 NG/ML 1.85 NG/ML (0.02-0.05) (0.02-0.05) (0.02-0.05) B-Type Natriuretic Peptide 201 PG/ML (0-100) Creatine Kinase MB 5.8 NG/ML (0.5-3.6) Test 06/30/16 06/30/16 07/01/16 12:20 19:33 03:59 Activated Partial 76.5 SEC 44.6 SEC 46.9 SEC Thromboplast Time (24.3-30.1) (24.3-30.1) (24.3-30.1) Red Blood Count 3.98 MIL/MM3 (4.50-5.90) Hemoglobin 12.9 GM/DL (13.0-17.0) Hematocrit 37.7 % (39.0-51.0) Platelet Count 104 TH/MM3 (150-450) Lymphocytes (%) (Auto) 45.4 % (9.0-44.0) Monocytes (%) (Auto) 11.1 % (0.0-8.0) Estimat Glomerular Filtration 59 ML/MIN (>89) Rate Calcium Level 8.1 MG/DL (8.5-10.1) Troponin I 1.31 NG/ML (0.02-0.05) B-Type Natriuretic Peptide 450 PG/ML (0-100) Total Protein 5.9 GM/DL (6.4-8.2) Albumin 3.1 GM/DL (3.4-5.0) Imaging Last Impressions Chest X-Ray 07/01/16 0000 Signed Impressions: Service Date/Time: Friday, July 01, 2016 14:15 - CONCLUSION: 1. Cardiomegaly. No acute pulmonary disease. Cuco Ruiz MD PE at Discharge GENERAL: Elderly male in no acute distress. HEENT: PERRLA, EOMI. No scleral icterus or conjunctival pallor. No lid lag or facial droop. CARDIOVASCULAR: Regular rate and rhythm. No obvious murmurs to auscultation. No chest tenderness to palpation. RESPIRATORY: Mild wheezing. Clear to auscultation. Breath sounds equal bilaterally. GASTROINTESTINAL: Abdomen soft, non-tender, nondistended. BS normal. MUSCULOSKELETAL: Extremities without clubbing, cyanosis, or edema. No obvious deformities. NEUROLOGICAL: Awake, alert and oriented x4. No focal neurologic deficits. Moving both upper and lower extremities spontaneously. PSYCH: Slightly anxious. Pt update on day of discharge Mr. Roberto is doing well. No chest pain, shortness of breath, fever, chills. Hospital Course Mr. Roberto is a pleasant 75 year old male with a history of HTN, Hyperlipidemia , CHF (EF 15-20%, severe LV dysfunction) and CAD s/p CABG who was brought to the ER for complaints of chest pain. Follows w/ Dr. Schmitz as outpatient, recent Cardiac Cath 05/17/16 w/ patent grafts w/ recommendation for medical management. Troponin highest was 1.85. Brilinta added, carvedilol was changed to metoprolol and Ranexa was added. Cardiology planning on EECP after discharge. for systolic CHF, patient was restarted on Entresto and continued lasix. After cardiology rounds and after discussion with Dr. Schmitz, patient was discharged with cardiology follow up in two weeks. Pt Condition on Discharge: Good Discharge Disposition: Discharge Home Discharge Time: > 30 minutes Discharge Instructions DIET: Follow Instructions for: Heart Healthy Diet Activities you can perform: Regular-No Restrictions Follow up Referrals: Cardiology - 2 Weeks with Donta Schmitz MD PCP Follow-up - 1 Week New Medications: Furosemide (Furosemide) 20 Mg Tab 20 MG PO DAILY Heart #30 TAB Isosorbide Mononitrate ER (Isosorbide Mononitrate ER) 30 Mg Sundeep 30 MG PO DAILY@07 Heart #60 TAB Metoprolol Tartrate (Metoprolol Tartrate) 25 Mg Tab 25 MG PO Q12HR Heart #60 TAB Ranolazine ER 12 HR (Ranexa ER 12 HR) 500 Mg Tab 500 MG PO Q12HR Heart #60 TAB Sacubitril-Valsartan (Entresto) 24-26 Mg Tab 1 TAB PO BID Heart #60 TAB Ticagrelor (Brilinta) 90 Mg Tab 90 MG PO BID Heart #60 TAB Continued Medications: Alprazolam (Alprazolam) 0.5 Mg Tab 0.5 MG PO Q6H PRN ANXIETY Ref 0 TAB Aspirin (Aspirin Low Strength) 81 Mg Chew 81 MG PO DAILY TAB Doxazosin (Doxazosin) 4 Mg Tab 4 MG PO DAILY TAB Nitroglycerin SL (Nitroglycerin SL) 0.4 Mg Subl 0.4 MG SL DIRECTED ONE TABLET UNDER THE TONGUE NEEDED FOR CHEST PAIN, MAY REPEAT EVERY FIVE MINUTES FOR A TOTAL OF 3 DOSES OR CALL 911 IF NO RELIEF PRN CHEST PAIN Ref 0 TAB.SL Discontinued Medications: Captopril (Captopril) 12.5 Mg Tab 6.25 MG PO DIRECTED Take 1 hour before meals. #45 Ref 0 TAB Carvedilol (Carvedilol) 3.125 Mg Tab 3.125 MG PO DAILY Ref 0 TAB Isosorbide Mononitrate ER (Isosorbide Mononitrate ER) 60 Mg Tab 60 MG PO DAILY Prevent Chest Pain Ref 0 TAB Mandy Mason DO Jul 02, 2016 09:20
[2016-07-03] MEDS ORDERED: ISOSORBIDE MONONITRATE 30 MG TAB PO SCH (07:00)
== END 2016-07-02 10:50 | disposition home or self-care (01) | DRG 281 ==
LOC: NEPE 23:10 → NEDA 06-30 01:28 → HCIS 06-30 09:20
PROVIDERS: ADMIT Hospitalist; ATTEND Hospitalist
DX: I21.4 Non-ST elevation (NSTEMI) myocardial infarction (principal); I50.22 Chronic systolic (congestive) heart failure; T82.898A Other specified complication of vascular prosthetic devices, implants and grafts, initial encounter; I34.0 Nonrheumatic mitral (valve) insufficiency; Z95.1 Presence of aortocoronary bypass graft; I10 Essential (primary) hypertension; E78.5 Hyperlipidemia, unspecified; I25.110 Atherosclerotic heart disease of native coronary artery with unstable angina pectoris; Z79.82 Long term (current) use of aspirin; Z95.810 Presence of automatic (implantable) cardiac defibrillator; I25.5 Ischemic cardiomyopathy; I70.1 Atherosclerosis of renal artery; I65.23 Occlusion and stenosis of bilateral carotid arteries; Y83.2 Surgical operation with anastomosis, bypass or graft as the cause of abnormal reaction of the patient, or of later complication, without mention of misadventure at the time of the procedure; Z23 Encounter for immunization
CPT/HCPCS: 71010; 80053; 82550; 82552; 83735; 83880; 84484; 85025; 85610; 85730; 90471; 90686; 93005; G0008; J1644; J2270; Q2038

== ENCOUNTER 2017-01-10 11:50 | Emergency (ER) | payer MEDICARE ==
[~2017-01-10] VITALS: Ht 172.7 cm; Wt 80.0 kg
[~2017-01-10 11:50] MED LIST changes: +BRIL90TA PO; -CAPT12.52 PO; -CARV3.12 PO; +FURO20TA PO; +ISOS30TA3 PO; -ISOS60TA PO; +METO25TA3 PO; +RANO500 PO; +SACU1TAB PO
[2017-01-10 11:53] VITALS: BP 138/60; PULSE 81; RESP 18; TEMP 97.7; O2SAT 96
[2017-01-10] MEDS ORDERED: LEVO100T5 PO (12:40)
[2017-01-10] MEDS ORDERED: CAPT12.52 PO (12:40)
[2017-01-10 12:47] VITALS: BP 112/57; PULSE 64; RESP 18; TEMP 97.7; O2SAT 99
[2017-01-10] MEDS ORDERED: SODIUM CHLOR 0.9% 1000 ML INJ 1,000 ML IV SCH (12:52)
[2017-01-10] MEDS ORDERED: MORPHINE SULFATE 4 MG/ML INJ IV PUSH ONE (13:00)
[2017-01-10] MEDS ORDERED: SODIUM CHLORIDE 0.9% FLUSH 10 ML FLUSH IV FLUSH PRN (13:00)
[2017-01-10] MEDS ORDERED: ONDANSETRON HCL 4 MG/2 ML VIAL IVP ONE (13:00)
[2017-01-10 13:08] VITALS: BP 112/57; PULSE 64; RESP 18; TEMP 97.7; O2SAT 99
--- NOTE | 2017-01-10 13:11 | PD ---
HPI Chief Complaint: Abdominal Pain Time Seen by Provider: 12:39 Travel History International Travel<30 days: No Contact w/Intl Traveler<30days: No Traveled to known affect area: No History of Present Illness HPI The patient is a 76-year-old male who presents to the emergency department via private vehicle for abdominal pain. The patient states he developed abdominal pain on Friday night after eating. The abdominal pain is located left aspect of the abdomen, located in left upper and lower quadrant , nonradiating, and not associated with any nausea or vomiting. He does note decreased oral intake secondary to the pain. He denies any diarrhea. The patient denies any previous abdominal surgeries. He denies any known history of pancreatitis or diverticulitis. The patient denies any fever, chills, or sweats. He denies any associated chest pain, shortness of breath, or cough. The patient's primary physician is Dr. Clive Cuello. PFSH Past Medical History Heart Rhythm Problems: Yes Cardiovascular Problems: Yes (DE, CABG) High Cholesterol: Yes Chest Pain: Yes Congestive Heart Failure: Yes Endocrine: Yes Genitourinary: Yes Hypertension: Yes Respiratory: Yes Thyroid Disease: Yes (HYPOTHIROIDISM) Tetanus Vaccination: Unknown Past Surgical History AICD: Yes Cardiac Surgery: Yes (CABG *1 1984, PACEMAKER 2002) Eye Surgery: Yes (CATARACT [id number]) Other Surgery: Yes Social History Alcohol Use: No Tobacco Use: No Substance Use: No Allergies-Medications (Allergen,Severity, Reaction): Coded Allergies: No Known Allergies (Verified , 01/10/17) Reported Meds & Prescriptions Reported Meds & Active Scripts Active Isosorbide Mononitrate ER (Isosorbide Mononitrate) 30 Mg Sundeep 30 Mg PO DAILY@07 Brilinta (Ticagrelor) 90 Mg Tab 90 Mg PO BID Entresto (Sacubitril-Valsartan) 24-26 Mg Tab 1 Tab PO BID Ranexa ER 12 HR (Ranolazine) 500 Mg Tab 500 Mg PO Q12HR Metoprolol Tartrate 25 Mg Tab 25 Mg PO Q12HR Reported Captopril 12.5 Mg Tab 12.5 Mg PO DAILY Take 1 hour before meals. Levothyroxine (Levothyroxine Sodium) 100 Mcg Tab 100 Mcg PO DAILY Nitroglycerin SL (Nitroglycerin) 0.4 Mg Subl 0.4 Mg SL DIRECTED PRN ONE TABLET UNDER THE TONGUE NEEDED FOR CHEST PAIN, MAY REPEAT EVERY FIVE MINUTES FOR A TOTAL OF 3 DOSES OR CALL 911 IF NO RELIEF Doxazosin (Doxazosin Mesylate) 4 Mg Tab 4 Mg PO DAILY Aspirin Low Strength (Aspirin) 81 Mg Chew 81 Mg PO DAILY Alprazolam 0.5 Mg Tab 0.5 Mg PO Q6H PRN Review of Systems Except as stated in HPI: all other systems reviewed are Neg General / Constitutional: No: Fever, Chills Cardiovascular: No: Chest Pain or Discomfort Respiratory: No: Shortness of Breath Gastrointestinal: Positive: Abdominal Pain, Loss of Appetite, No: Nausea, Vomiting, Diarrhea Genitourinary: No: Dysuria Musculoskeletal: No: Weakness Neurologic: No: Dizziness Physical Exam Narrative GENERAL: Awake, alert, pleasant 76-year-old male who appears his stated age and is in no acute respiratory distress. SKIN: Focused skin assessment warm/dry. HEAD: Atraumatic. Normocephalic. EYES: Patient is wearing glasses. No obvious injection or drainage. ENT: No nasal bleeding or discharge. Upper and lower dentures are in place. NECK: Trachea midline. No JVD. CARDIOVASCULAR: Regular rate and rhythm. No murmur appreciated. RESPIRATORY: No accessory muscle use. Clear to auscultation. Breath sounds equal bilaterally. GASTROINTESTINAL: Abdomen soft, tender to palpation left upper quadrant and left lower quadrant. No rebound tenderness, guarding, or rigidity. MUSCULOSKELETAL: No obvious deformities. No clubbing. No cyanosis. No edema. Calves are soft bilaterally. NEUROLOGICAL: Awake and alert. No obvious cranial nerve deficits. Motor grossly within normal limits. Normal speech. PSYCHIATRIC: Appropriate mood and affect; insight and judgment normal. Data Data Last Documented VS Vital Signs Date Time Temp Pulse Resp B/P (MAP) Pulse Ox O2 Delivery O2 Flow Rate FiO2 01/10/17 14:29 97.8 60 17 131/60 (83) 98 Room Air Orders Orders Complete Blood Count With Diff (01/10/17 12:52) Comprehensive Metabolic Panel (01/10/17 12:52) Lipase (01/10/17 12:52) Urinalysis - C+S If Indicated (01/10/17 12:52) Ct Abd/Pel W/O Iv Contrast (01/10/17 12:52) Iv Access Insert/Monitor (01/10/17 12:52) Ecg Monitoring (01/10/17 12:52) Oximetry (01/10/17 12:52) Morphine Inj (Morphine Inj) (01/10/17 13:00) Ondansetron Inj (Zofran Inj) (01/10/17 13:00) Sodium Chlor 0.9% 1000 Ml Inj (Ns 1000 M (01/10/17 12:52) Sodium Chloride 0.9% Flush (Ns Flush) (01/10/17 13:00) Levofloxacin 500 Mg Premix Inj (Levaquin (01/10/17 14:15) Labs Laboratory Tests Test 01/10/17 13:00 01/10/17 13:05 White Blood Count 6.4 TH/MM3 Red Blood Count 4.21 MIL/MM3 Hemoglobin 13.0 GM/DL Hematocrit 39.3 % Mean Corpuscular Volume 93.4 FL Mean Corpuscular Hemoglobin 30.8 PG Mean Corpuscular Hemoglobin Concent 33.0 % Red Cell Distribution Width 15.1 % Platelet Count 132 TH/MM3 Mean Platelet Volume 9.6 FL Neutrophils (%) (Auto) 64.1 % Lymphocytes (%) (Auto) 23.4 % Monocytes (%) (Auto) 10.5 % Eosinophils (%) (Auto) 1.6 % Basophils (%) (Auto) 0.4 % Neutrophils # (Auto) 4.1 TH/MM3 Lymphocytes # (Auto) 1.5 TH/MM3 Monocytes # (Auto) 0.7 TH/MM3 Eosinophils # (Auto) 0.1 TH/MM3 Basophils # (Auto) 0.0 TH/MM3 CBC Comment DIFF FINAL Differential Comment Blood Urea Nitrogen 13 MG/DL Creatinine 1.07 MG/DL Random Glucose 82 MG/DL Total Protein 7.0 GM/DL Albumin 3.6 GM/DL Calcium Level 8.4 MG/DL Alkaline Phosphatase 82 U/L Aspartate Amino Transf (AST/SGOT) 27 U/L Alanine Aminotransferase (ALT/SGPT) 20 U/L Total Bilirubin 1.0 MG/DL Sodium Level 138 MEQ/L Potassium Level 4.7 MEQ/L Chloride Level 106 MEQ/L Carbon Dioxide Level 25.7 MEQ/L Anion Gap 6 MEQ/L Estimat Glomerular Filtration Rate 67 ML/MIN Lipase 112 U/L Urine Color LIGHT-YELLOW Urine Turbidity CLEAR Urine pH 6.0 Urine Specific [place] 1.006 Urine Protein NEG mg/dL Urine Glucose (UA) NEG mg/dL Urine Ketones NEG mg/dL Urine Occult Blood NEG Urine Nitrite NEG Urine Bilirubin NEG Urine Urobilinogen LESS THAN 2.0 MG/DL Urine Leukocyte Esterase NEG Urine WBC LESS THAN 1 /hpf Microscopic Urinalysis Comment CULT NOT INDICATED MDM Medical Decision Making Medical Screen Exam Complete: Yes Emergency Medical Condition: Yes Medical Record Reviewed: Yes Interpretation(s) Laboratory Tests Test 01/10/17 13:00 01/10/17 13:05 White Blood Count 6.4 TH/MM3 Red Blood Count 4.21 MIL/MM3 Hemoglobin 13.0 GM/DL Hematocrit 39.3 % Mean Corpuscular Volume 93.4 FL Mean Corpuscular Hemoglobin 30.8 PG Mean Corpuscular Hemoglobin Concent 33.0 % Red Cell Distribution Width 15.1 % Platelet Count 132 TH/MM3 Mean Platelet Volume 9.6 FL Neutrophils (%) (Auto) 64.1 % Lymphocytes (%) (Auto) 23.4 % Monocytes (%) (Auto) 10.5 % Eosinophils (%) (Auto) 1.6 % Basophils (%) (Auto) 0.4 % Neutrophils # (Auto) 4.1 TH/MM3 Lymphocytes # (Auto) 1.5 TH/MM3 Monocytes # (Auto) 0.7 TH/MM3 Eosinophils # (Auto) 0.1 TH/MM3 Basophils # (Auto) 0.0 TH/MM3 CBC Comment DIFF FINAL Differential Comment Blood Urea Nitrogen 13 MG/DL Creatinine 1.07 MG/DL Random Glucose 82 MG/DL Total Protein 7.0 GM/DL Albumin 3.6 GM/DL Calcium Level 8.4 MG/DL Alkaline Phosphatase 82 U/L Aspartate Amino Transf (AST/SGOT) 27 U/L Alanine Aminotransferase (ALT/SGPT) 20 U/L Total Bilirubin 1.0 MG/DL Sodium Level 138 MEQ/L Potassium Level 4.7 MEQ/L Chloride Level 106 MEQ/L Carbon Dioxide Level 25.7 MEQ/L Anion Gap 6 MEQ/L Estimat Glomerular Filtration Rate 67 ML/MIN Lipase 112 U/L Urine Color LIGHT-YELLOW Urine Turbidity CLEAR Urine pH 6.0 Urine Specific [place] 1.006 Urine Protein NEG mg/dL Urine Glucose (UA) NEG mg/dL Urine Ketones NEG mg/dL Urine Occult Blood NEG Urine Nitrite NEG Urine Bilirubin NEG Urine Urobilinogen LESS THAN 2.0 MG/DL Urine Leukocyte Esterase NEG Urine WBC LESS THAN 1 /hpf Microscopic Urinalysis Comment CULT NOT INDICATED CT of the abdomen and pelvis reveals COPD changes with a sizable area of consolidation in the left lower lobe. There is minimal effusion at the right base. No definite abnormality to explain the patient's abdominal pain is identified. Mild enlargement of the prostate. There are multiple punctate calcified gallstones within the neck of the gallbladder. Differential Diagnosis Differential diagnosis includes pancreatitis, colitis, diverticulitis, peptic ulcer disease, gastritis, biliary colic, choledocholithiasis, cholecystitis, mesenteric ischemia. Narrative Course IV was established, labs were drawn and sent, and the patient was placed on cardiac telemetry monitoring and continuous pulse oximetry monitoring. The patient was administered morphine, Zofran, and IV fluids. Noncontrast CT of the abdomen and pelvis was ordered. The patient's white count is unremarkable. LFTs and lipase are normal. UA is negative. The patient's CT the abdomen and pelvis reveals multiple punctate gallstones of the neck the gallbladder. The patient's LFTs and lipase are unremarkable, I doubt choledocholithiasis, he may a for from symptomatic biliary colic. CT of the abdomen and pelvis also reveals left lower lobe consolidation, most likely atelectasis with possible early pneumonia secondary to splinting from pain. The patient was administered a dose of Levaquin. A call was placed to the on-call general surgeon, Dr. Osorio, in regards to the patient's gallstones and probable biliary colic. He does note pain radiating for the last 3 days a decreased appetite, however , there is no evidence for acute cholecystitis. The patient does appear to have biliary colic, secondary to pneumonia from splinting, will be treated with Levaquin. I discussed the patient with the general surgeon who will see the patient in the office on Friday for outpatient elective follow-up. The patient is stable for outpatient follow-up. Diagnosis Primary Impression: Biliary colic Additional Impression: Pneumonia Qualified Codes: J18.1 - Lobar pneumonia, unspecified organism Referrals: Khai Osorio MD call for appointment Call for an appointment to be seen Friday as an add on Patient Instructions: General Instructions Additional Instructions: Medications as directed. Avoid fried and fatty foods. Follow-up with Dr. Osorio on Friday, call the office and tell them that you were seen in the emergency department on Friday and that the surgeon wants to see you as an add- on in the office on Friday. Return if symptoms worsen or progress. Please provide the patient a copy of his CT results and lab results at discharge. Med/Other Pt SpecificInfo: Prescription(s) given Scripts Hydrocodone-Acetaminophen ([place]) 5-325 mg Tab 1 TAB PO Q6H Y for PAIN, #12 TAB 0 Refills Prov: Boo Madera MD 01/10/17 Levofloxacin (Levaquin) 500 Mg Tablet 500 MG PO DAILY for Infection for 7 Days, #7 TAB 0 Refills Prov: Boo Madera MD 01/10/17 Disposition: 01 DISCHARGE HOME Condition: Stable Boo Madera MD Jan 10, 2017 13:11
[2017-01-10 13:26] LABS: AUTOMATED NEUTROPHIL # 4.1 TH/MM3 (1.8-7.7); BASOPHIL % 0.4 % (0.0-2.0); EOSINOPHIL # 0.1 TH/MM3 (0-0.4); EOSINOPHIL % 1.6 % (0.0-4.0); HEMATOCRIT 39.3 % (39.0-51.0); HEMO FLAGS DIFF FINAL; LYMPH % 23.4 % (9.0-44.0); LYMPHOCYTE # 1.5 TH/MM3 (1.0-4.8); MEAN CELL VOLUME 93.4 FL (80.0-100.0); MEAN CORPUSCULAR HEMOGLOBIN 30.8 PG (27.0-34.0); MONO % 10.5 % (0.0-8.0); NEUT % 64.1 % (16.0-70.0); PLATELET COUNT 132 TH/MM3 (150-450); RED BLOOD COUNT 4.21 MIL/MM3 (4.50-5.90); RED CELL DISTRIBUTION WIDTH 15.1 % (11.6-17.2); WHITE BLOOD COUNT 6.4 TH/MM3 (4.0-11.0)
[2017-01-10 13:34] LABS: BLOOD, URINE NEG (NEG); GLUCOSE,URINE NEG (NEG); KETONE, URINE NEG (NEG); NITRITE,URINE NEG (NEG); URINE COLOR LIGHT-YELLOW (YELLW/STRAW)
[2017-01-10 13:40] LABS: COMMENT (UR) CULT NOT INDICATED; CULTURE IF INDICATED CULT NOT INDICATED
[2017-01-10 13:52] LABS: ALKALINE PHOSPHATASE 82 U/L (45-117); ALT (GPT) 20 U/L (12-78)
[2017-01-10 13:53] LABS: ANION GAP 6 MEQ/L (5-15); BICARBONATE 25.7 MEQ/L (21.0-32.0); BLOOD UREA NITROGEN 13 MG/DL (7-18); CHLORIDE 106 MEQ/L (98-107); GLOMERULAR FILTRATION RATE 67 ML/MIN (>89); SODIUM (NA) 138 MEQ/L (136-145)
[2017-01-10 13:54] LABS: AST (GOT) 27 U/L (15-37); POTASSIUM 4.7 MEQ/L (3.5-5.1)
--- NOTE | 2017-01-10 14:05 | RADRPT ---
EXAM DATE/TIME: 01/10/2017 13:35 [facility] COMPARISON: No previous studies available for comparison. INDICATIONS : Abdominal pain. Diverticulitis. ORAL CONTRAST: No oral contrast ingested. RADIATION DOSE: 9.46 CTDIvol (mGy) MEDICAL HISTORY : Cardiovascular disease. Congestive heart failure. Hypertension. SURGICAL HISTORY : Internal defibulator. ENCOUNTER: Initial ACUITY: 3 days PAIN SCALE: 7/10 LOCATION: Left abdominal. TECHNIQUE: Volumetric scanning of the abdomen and pelvis was performed. Using automated exposure control and ad justment of the mA and/or kV according to patient size, radiation dose was kept as low as reasonably achievable to obtain optimal diagnostic quality images. DICOM format image data is available electro nically for review and comparison. FINDINGS: Imaging through the lung bases demonstrates mild bronchiectasis and COPD changes. There is an area of consolidation in the left lung base. There is minimal pleural effusion at the right lung base. The heart is enlarged. The patient is post nodular replacement. The appearance of the liver, spleen, pancreas, adrenal glands and kidneys is within normal limits The abdominal aorta demonstrates diffuse atherosclerotic plaquing but is normal in caliber. There is no retroperitoneal lymphadenopathy. The visualized loops of small and large bowel are normal in appearance. There is no free fluid within the pelvis. No free air is identified. The prostate is mildly enlarged measuring 5.6 x 4.0 cm. No iliac or inguinal adenopathy is present. The visualized bony structures de monstrate degenerative changes but are otherwise intact. CONCLUSION: 1. COPD changes with a sizable area of consolidation in the left lower lobe. There is minimal effusio n at the right base. 2. No definite abnormality to explain the patient's abdominal pain is identified. 3. Mild enlargement of the prostate. 4. There are multiple punctate calcified gallstones within the neck of the gallbladder. Teja Barrientos MD on January 10, 2017 at 13:52 Board Certified Radiologist. This report was verified electronically.
[2017-01-10] MEDS ORDERED: LEVOFLOXACIN 500 MG PREMIX INJ 100 ML IV ONE (14:15)
[2017-01-10 14:29] VITALS: BP 131/60; PULSE 60; RESP 17; TEMP 97.8; O2SAT 98
[2017-01-10] MEDS ORDERED: NORC5TAB PO (14:40)
[2017-01-10] MEDS ORDERED: LEVA500T20 PO (14:40)
[2017-01-10 15:48] VITALS: BP 131/60
== END 2017-01-10 15:50 | disposition home or self-care (01) ==
LOC: NEPC 11:50
DX: J18.1 Lobar pneumonia, unspecified organism (principal); K80.50 Calculus of bile duct without cholangitis or cholecystitis without obstruction; I50.9 Heart failure, unspecified; I11.0 Hypertensive heart disease with heart failure; E78.00 Pure hypercholesterolemia, unspecified; I25.2 Old myocardial infarction; Z95.1 Presence of aortocoronary bypass graft; Z95.0 Presence of cardiac pacemaker
CPT/HCPCS: 74176; 80053; 81001; 83690; 85025; 96361; 96365; 96375; 99285; J1956; J2270; J2405; J7030

== ENCOUNTER 2017-01-31 08:02 | Observation (INO) | payer MEDICARE ==
[~2017-01-31] VITALS: Ht 172.7 cm; Wt 79.9 kg
[~2017-01-31 08:02] MED LIST changes: +CAPT12.52 PO; -FURO20TA PO; +LEVO100T5 PO
[2017-01-31] MEDS ORDERED: INSULIN HUMAN REGULAR 1,000 UNITS/10 ML VIAL SQ PRN (08:30)
[2017-01-31] MEDS ORDERED: SODIUM CHLORID 0.9% 500 ML IV PRN (08:30)
[2017-01-31] MEDS ORDERED: METOPROLOL TARTRATE 25 MG TAB PO PRN (08:30)
[2017-01-31] MEDS ORDERED: POVIDONE IODINE 5% (ANTISEPSIS KIT) 4 APPLICATIONS EACH NARE PRN (08:30)
[2017-01-31] MEDS ORDERED: CHLORHEXIDINE GLUCONATE 2 % 1 PACK (2 CLOTHS) TOPICAL PRN (08:30)
[2017-01-31] MEDS ORDERED: LACTATED RINGER'S 1000 ML IV PRN (08:30)
[2017-01-31] MEDS ORDERED: ceFAZolin 2 GM PREMIX 50 ML IV SCH (08:45)
[2017-01-31] MEDS ORDERED: NEOSTIGMINE 3 MG/3 ML SYR IV ONE (09:40)
[2017-01-31] MEDS ORDERED: PROPOFOL 200 MG/20 ML AMP IV ONE (09:40)
[2017-01-31] MEDS ORDERED: PHENYLEPH/NS 1000 MCG/10 ML SYR IV ONE (09:40)
[2017-01-31] MEDS ORDERED: LIDOCAINE HCL 1% PF 5 ML AMPULE OTHER ONE (09:40)
[2017-01-31] MEDS ORDERED: GLYCOPYRROLATE 1 MG/5 ML SYRINGE IV PUSH ONE (09:40)
[2017-01-31] MEDS ORDERED: ROCURONIUM INJ 50 MG/5 ML SYRINGE IV PUSH ONE (09:40)
[2017-01-31] MEDS ORDERED: ePHEDrine/NS 25 MG/5 ML SYR IV ONE (09:40)
[2017-01-31] MEDS ORDERED: ONDANSETRON HCL 4 MG/2 ML VIAL IV PUSH ONE (09:40)
[2017-01-31] MEDS ORDERED: BUPIVACAINE/EPINEPHRINE 0.25% 50 ML VIAL ONE (11:49)
[2017-01-31] MEDS ORDERED: MIDAZOLAM HCL 2 MG/2 ML VIAL ONE (11:57)
[2017-01-31] MEDS ORDERED: FAMOTIDINE 20 MG/2 ML VIAL ONE (11:57)
[2017-01-31] MEDS ORDERED: DO NOT ADM ANY ANTICOAGULANT DRUGS PRN ×2 (13:28)
[2017-01-31] MEDS ORDERED: *morphine SULFATE 8 MG/ML PERIprocedure ONLY ONE ×2 (13:34→13:55)
[2017-01-31] MEDS ORDERED: ACETAMINOPHEN 1000 MG/100 ML 100 ML IV ONE (13:38)
[2017-01-31] MEDS ORDERED: *HYDROmorphone PF 1 MG VIAL PERIprocedural Use ONLY ONE (14:09)
--- NOTE | 2017-01-31 14:16 | MP ---
cc: DIALLO CABRERA DATE OF SURGERY: 01/31/2017 PREOPERATIVE DIAGNOSIS Chronic cholecystitis. POSTOPERATIVE DIAGNOSIS Chronic cholecystitis. PROCEDURE Laparoscopic cholecystectomy. ATTENDING SURGEON [place]. HEALTH PROFESSIONAL Red [place], [place] III. ANESTHESIA General and local anesthetic. COMPLICATIONS None. ESTIMATED BLOOD LOSS Less than 10 cc. FINDINGS Mild scarring around the gallbladder with no evidence of stones or significant pathology of the gallbladder. INDICATION FOR PROCEDURE The patient is a 76-year-old male who was referred by the [facility] Emergency Department for chronic cholecystitis. The patient had presented to the emergency room several weeks ago with right upper quadrant pain and on work-up and evaluation was found to have a mild chronic cholecystitis or biliary colic. The patient was treated with antibiotics and analgesics and a low-fat diet which she responded to well. The patient presented due to some continued intermittent discomfort for cholecystectomy. The risks, benefits and alternatives of laparoscopic cholecystectomy were discussed with the patient in detail prior to the procedure and the patient agreed to undergo the procedure. DETAILS OF PROCEDURE After informed consent was obtained, the patient was taken to the operating room, placed in a supine position and placed under general endotracheal anesthesia. The patient's abdomen was shaved, prepped and draped in a sterile fashion. A timeout was performed. The abdomen was entered through a Mary direct entry technique in the periumbilical incision. I directly placed a 10 mm balloon trocar into the abdomen under visualization and insufflated the abdomen. We used a 5 mm camera to survey the abdomen. There was no evidence of any obvious intra-abdominal pathology on diagnostic laparoscopy. We then placed subxiphoid and two right upper quadrant 5 mm ports under direct visualization of the laparoscope with local anesthetic at the sites as well. We were then able to grasp the gallbladder at the infundibulum in the fundus and retract it upward. There was some evidence of chronic inflammation but this was minimal and there was no acute inflammation noted. We were able to easily dissect out the triangle of [place] using the hook electrocautery as well as the [place] dissector. The critical view of safety was obtained. We doubly clipped the cystic duct and cystic artery proximal and distal, and divided these with laparoscopic Endo Hang. We took the gallbladder off the gallbladder bed with the hook electrocautery. There was a small amount of bile spillage but there were no stones spilled. We were able to remove the gallbladder from the abdomen in an EndoCatch bag through the periumbilical port. We did use the suction shoe repairer apprentice device with a small amount of saline to suction out a few cc's of bile in the gallbladder fossa. We irrigated this as well with approximately 300 cc of saline until all suctioning was clear. At this point in time we turned our attention towards closure. We removed all ports under visualization with the laparoscope and expressed pneumoperitoneum. We closed the Mary entry site with a [id number] 0 Vicryl suture. We closed the skin with 4-0 Monocryl and Dermabond. The patient was discontinued from anesthesia and taken to PACU in stable condition. The patient tolerated the procedure well with no apparent complications. All counts were correct. I was present and scrubbed for the entire procedure. MD ENRRIQUE Wells/NIMO /1:48 PM /2:00 PM
[2017-01-31] MEDS ORDERED: *ONDANSETRON 4 MG VIAL PERIprocedural Use ONLY ONE (15:20)
[2017-01-31] MEDS ORDERED: *PROMETHAZINE 25 MG/ML VIAL PERIprocedural use ONLY ONE (15:21)
[2017-01-31] MEDS: SODIUM CHLOR 0.9% 1000 ML INJ 1,000 ML IV SCH (15:30)
[2017-01-31] MEDS ORDERED: KETOROLAC TROMETHAMINE 30 MG/ML (IVP) VIAL IVP PRN (16:00)
[2017-01-31] MEDS ORDERED: SODIUM CHLORIDE 0.9% FLUSH 10 ML FLUSH IV FLUSH PRN (16:00)
[2017-01-31] MEDS ORDERED: ACETAMINOPHEN/HYDROcodone 325 MG/5 MG TAB PO PRN ×2 (16:00)
[2017-01-31] MEDS ORDERED: NITROGLYCERIN 0.4 MG SL 25 TABS/BTL SL PRN (16:00)
[2017-01-31] MEDS ORDERED: ONDANSETRON HCL 4 MG/2 ML VIAL IV PUSH PRN (16:00)
[2017-01-31] MEDS ORDERED: MORPHINE SULFATE 4 MG/ML INJ IV PUSH PRN (16:00)
[2017-01-31] MEDS ORDERED: Post-op Orders (for Pharmacy) MISC XX ONE (16:00)
[2017-01-31] MEDS ORDERED: diphenhydrAMINE HCL 25 MG CAP PO PRN (16:00)
[2017-01-31 16:06] VITALS: BP 133/60; PULSE 61; RESP 15; TEMP 96.6; O2SAT 96
[2017-01-31 20:00] VITALS: BP 117/61; PULSE 82; RESP 18; TEMP 96.2; O2SAT 98
[2017-01-31] MEDS: SODIUM CHLORIDE 0.9% FLUSH 10 ML FLUSH IV FLUSH SCH (20:49)
[2017-01-31] MEDS: ALPRAZolam 0.5 MG TAB PO PRN (22:54)
[2017-02-01] VITALS: BP 133/74; PULSE 96; RESP 20; TEMP 97.6; O2SAT 97
[2017-02-01 04:00] VITALS: BP 125/65; PULSE 92; RESP 20; TEMP 96.1; O2SAT 97
[2017-02-01] MEDS: SODIUM CHLOR 0.9% 1000 ML INJ 1,000 ML IV SCH ×2 (04:05→11:30)
[2017-02-01] MEDS ORDERED: LEVOTHYROXINE SODIUM 100 MCG TAB PO SCH (06:00)
[2017-02-01] MEDS ORDERED: ISOSORBIDE MONONITRATE 30 MG TAB PO SCH (07:00)
[2017-02-01 08:00] VITALS: BP 111/63; PULSE 84; RESP 16; TEMP 96.3; O2SAT 91
[2017-02-01] MEDS: SODIUM CHLORIDE 0.9% FLUSH 10 ML FLUSH IV FLUSH SCH (08:23)
[2017-02-01] MEDS: ALPRAZolam 0.5 MG TAB PO PRN (08:33)
[2017-02-01] MEDS ORDERED: CAPTOPRIL 12.5 MG TAB PO SCH (09:00)
[2017-02-01] MEDS ORDERED: DOXAZOSIN MESYLATE 4 MG TAB PO SCH (09:00)
[2017-02-01] MEDS ORDERED: INFLUENZA VIRUS VACCINE (QUADRIVALENT) 0.5 ML SYR IM ONE (10:00)
[2017-02-01 12:00] VITALS: BP 117/62; PULSE 80; RESP 16; TEMP 95.9; O2SAT 92
[2017-02-01 16:00] VITALS: BP 111/56; PULSE 84; RESP 16; TEMP 97.2; O2SAT 92
--- NOTE | 2017-02-01 16:53 | HHI.PR ---
Subjective Subjective Notes Abdomen soft; had to have paul placed last night. Objective Vitals/I&O Vital Signs Date Time Temp Pulse Resp B/P (MAP) Pulse Ox O2 Delivery O2 Flow Rate FiO2 02/01/17 16:00 97.2 84 16 111/56 (74) 92 01/31/17 17:07 Room Air Abdomen: Non-distended, Non-tender Narrative Exam trocar sites clean and dry with glue present A/P Assessment and Plan POD #1 lap bonifacio with urinary retention; tolerating diet without difficulty. Plan: Remove paul; if not able to void, will send home with leg bag and follow with urology Roc Lassiter MD Feb 01, 2017 16:53
== END 2017-02-01 18:50 | disposition home or self-care (01) ==
LOC: HSDC 08:02 → N07B 16:15 → HSDC 17:09
PROVIDERS: ADMIT Surgery; ATTEND Surgery
DX: K81.1 Chronic cholecystitis (principal); I11.0 Hypertensive heart disease with heart failure; I50.9 Heart failure, unspecified; Z95.0 Presence of cardiac pacemaker
CPT/HCPCS: 00790; 47562; 88304; 94150; 96360; 96361; G0378; J0131; J0690; J1170; J2250; J2270; J2370; J2405; J2550; J2710; J3010; J7030; J7120